=== PATIENT | female | born 1960 | race Caucasian/White ===

== ENCOUNTER → 2019-02-09 | Outpatient (CLI) | payer OTHER ==
--- NOTE | 2019-02-09 16:14 | PFTRPT ---
Height: 66.00 Inches Weight: 230.00 Lbs BSA: 2.12 Diagnosis: R06.02 DATE OF PROCEDURE: 02/09/2019 ORDERED BY: Dr. Ramos Spirometry: Pre and post bronchodilator study of excellent technical quality. Forced vital capacity reduced. FEV1 generally in proportion. Obstructive index is, therefore, normal. Flow Volume Loop: Expiratory limb of the flow volume loop does suggest some degree of flow rate limitation. Borderline bronchodilator response is identified. Lung Volumes: Total lung capacity normal. Residual volume suggests air trapping. Diffusing Capacity: Diffusing capacity is severely reduced and does not correct for alveolar volume. Hemoglobin: Hemoglobin acceptable at 12.4. Airway Mechanics: Airway resistance markedly elevated with a concomitant decrease in airway conductance. IMPRESSION: Suspect underlying obstructive impairment with air trapping. Diffusing capacity impairment. Borderline bronchodilator response. Please correlate clinically. MTDD
== END ==
LOC: M CARPUL 08:13
PROVIDERS: ATTEND Internal Medicine Pulmonary Disease
DX: R06.02 Shortness of breath (principal)

== ENCOUNTER → 2019-02-16 | Outpatient (CLI) | payer OTHER ==
[~2019-02-16] MED LIST: METHACHOLINE KIT (J7674) INH ONE
--- NOTE | 2019-02-16 15:47 | PFTRPT ---
Site: [facility], [address] [place], [address] ID: [id number] Name: ANSLEY BLUE Visit Date: 02/16/2019 Second ID: [id number] Referring Doctor: Aram Ramos MD Reviewing Doctor: Aram Ramos MD Private Duty Rn: Quinn SALGADO, NIECY Age: 58 : 1960 Sex: Female Race: Height: 66.00 Inches Weight: 230.00 Lbs BSA: 2.12 Order IDs: [id number] Requested Test(s): <RESP-PFT.METH CHAL> Diagnosis: R06.02 of albuterol for postbronchodilator. Review Status: Not Reviewed Pre-Bronch Post-Bronch Pred Actual %Pred Actual %Chng SPIROMETRY FVC (L) 3.56 1.97 55 2.01 1 FEV1 (L) 2.75 1.52 55 1.55 2 FEV1/FVC (%) 78 77 98 77 FEF 25% (L/sec) 5.19 4.28 82 3.80 -11 FEF 50% (L/sec) 3.63 1.73 47 2.01 15 FEF 75% (L/sec) 1.21 0.40 33 0.50 25 FEF 25-75% (L/sec) 2.47 1.21 48 1.37 13 FEF Max (L/sec) 6.61 4.83 73 3.97 -17 FIVC (L) 2.22 2.13 -4 FIF 50% (L/sec) 3.85 3.00 77 3.35 11 FIF Max (L/sec) 3.50 3.43 -1 Expiratory Time (sec) 7.05 6.18 -12 Back Extrap Vol (L) 0.10 0.07 -29 Time To FEFmax (sec) 0.083 0.091 10
== END ==
LOC: M CARPUL 08:13
PROVIDERS: ATTEND Internal Medicine Pulmonary Disease
DX: R06.02 Shortness of breath (principal)
CPT/HCPCS: 94070; J7674

== ENCOUNTER 2022-12-29 20:41 | Inpatient (IN) | payer OTHER ==
[~2022-12-29] VITALS: Ht 167.6 cm; Wt 90.1 kg
[2022-12-29] MEDS ORDERED: CHARCOAL ACTIVATED LIQUID 25GM/120ML BTL PO ONE (21:05)
[2022-12-29 21:15] LABS: BASO # 0.1 10^3/uL (0.0-0.2); BASO % 0.8 % (0.0-1.0); EOS # 0.2 10^3/uL (0.0-0.5); EOS % 2.3 % (0.0-3.0); HEMATOCRIT 43.6 % (36.0-47.0); HEMOGLOBIN 14.6 g/dl (12.0-15.5); LYMPH # 2.2 10^3/uL (1.5-5.0); LYMPH % 33.9 % (24.0-44.0); MEAN CORPUSCULAR HEMOGLOBIN 31.9 pg (27.0-33.0); MEAN CORPUSCULAR HGB CONC 33.5 g/dl (32.0-36.5); MEAN CORPUSCULAR VOLUME 95.2 fl (80.0-96.0); MONO # 0.4 10^3/uL (0.0-0.8); MONO % 6.9 % (2.0-8.0); NEUTROPHILS # 3.6 10^3/uL (1.5-8.5); NEUTROPHILS % 55.8 % (36.0-66.0); PLATELET COUNT, AUTOMATED 230 10^3/uL (150-450); RED BLOOD COUNT 4.58 10^6/uL (4.00-5.40); WHITE BLOOD COUNT 6.4 10^3/uL (4.0-10.0)
[2022-12-29] MEDS ORDERED: ATEN25TA PO (21:36)
[2022-12-29] MEDS ORDERED: LISI5TAB11 PO (21:36)
[2022-12-29 21:43] LABS: AMPHETAMINES LEVEL URINE NEGATIVE (NEGATIVE); BARBITURATES URINE NEGATIVE (NEGATIVE); BENZODIAZEPINES URINE NEGATIVE (NEGATIVE); CANNABINOIDS URINE NEGATIVE (NEGATIVE); METHADONE URINE NEGATIVE (NEGATIVE); OPIATES URINE NEGATIVE (NEGATIVE); PHENCYCLIDINE URINE NEGATIVE (NEGATIVE)
[2022-12-29 21:44] LABS: COCAINE METABOLITE URINE NEGATIVE (NEGATIVE)
[2022-12-29 21:46] LABS: ETHYL ALCOHOL (ETHANOL) 0.181 % (0.000-0.010)
[2022-12-29 21:47] LABS: CPK CREATINE PHOSPHOKINASE 148 U/L (34-145)
[2022-12-29 21:48] LABS: ACETAMINOPHEN LEVEL < 2.0 UG/ML (10.0-20.0); ALBUMIN 3.9 G/DL (3.2-5.2); ALKALINE PHOSPHATASE 69 U/L (46-116); ALT/SGPT 29 U/L (7.0-40); AST/SGOT 18 U/L (<34); BILIRUBIN,DIRECT 0.4 MG/DL (<0.4); BILIRUBIN,TOTAL 1.2 MG/DL (0.3-1.2); BLOOD UREA NITROGEN 13 MG/DL (9-23); CALCIUM LEVEL 9.3 MG/DL (8.3-10.6); CARBON DIOXIDE LEVEL 27 MMOL/L (20-31); CHLORIDE LEVEL 107 MMOL/L (98-107); CREATININE FOR GFR 0.73 MG/DL (0.55-1.30); GLOMERULAR FILTRATION RATE > 60.0 (>45); GLUCOSE, FASTING 91 MG/DL (74-106); POTASSIUM SERUM 3.7 MMOL/L (3.5-5.1); SALICYLATE LEVEL < 3.0 MG/DL (<30); SODIUM LEVEL 140 MMOL/L (136-145); TOTAL PROTEIN 7.1 G/DL (5.7-8.2)
[2022-12-29 21:49] LABS: THYROID STIMULATING HORMONE 1.718 uIU/ML (0.55-4.78)
[2022-12-29 22:00] LABS: RSV AMPLIFICATION NEGATIVE (NEGATIVE)
[2022-12-29] MEDS ORDERED: NS 1,000 ML IV ONE ×2 (23:10→23:50)
[2022-12-30] MEDS ORDERED: HOME MED LIST COMPLETE! XX SCH (02:15)
[2022-12-30] MEDS ORDERED: NS 1,000 ML IV ONE (02:55)
[2022-12-30] MEDS: NICOTINE 14 MG/24 HR TRANSDERMAL TD SCH (09:00)
[2022-12-30] MEDS: MULTIVITAMINS/MINERALS THERAP 1 TAB PO SCH (09:00)
[2022-12-30] MEDS: FOLIC ACID 1MG TAB PO SCH (09:00)
[2022-12-30] MEDS: THIAMINE 100 MG TAB PO SCH ×2 (09:00→21:11)
[2022-12-30] MEDS ORDERED: ACETAMINOPHEN TAB 650MG DOSE (2X325MG) PO ONE (10:15)
[2022-12-30] MEDS ORDERED: MAALOX 30 ML SUSP *UDC PO PRN (13:05)
[2022-12-30] MEDS ORDERED: LORazepam 2 MG TAB PO PRN (13:05)
[2022-12-30] MEDS ORDERED: IBUPROFEN 400MG TAB PO PRN (13:05)
[2022-12-30] MEDS ORDERED: traZODone 50 MG TAB PO PRN (13:05)
[2022-12-30] MEDS ORDERED: ACETAMINOPHEN TAB 650MG DOSE (2X325MG) PO PRN (13:05)
[2022-12-30] MEDS ORDERED: MOM 30ML SUSPENSION UDC PO PRN (13:05)
[2022-12-30 17:58] VITALS: BP 146/88
[2022-12-30 18:53] VITALS: BP 146/88
[2022-12-31 01:30] VITALS: BP 156/84
[2022-12-31 05:53] VITALS: BP 150/71
[2022-12-31] MEDS: NICOTINE 14 MG/24 HR TRANSDERMAL TD SCH ×2 (09:00→13:43)
[2022-12-31] MEDS: FOLIC ACID 1MG TAB PO SCH (09:17)
[2022-12-31] MEDS: MULTIVITAMINS/MINERALS THERAP 1 TAB PO SCH (09:17)
[2022-12-31] MEDS: THIAMINE 100 MG TAB PO SCH ×2 (09:17→22:45)
[2022-12-31] MEDS: atenoloL 25 MG TAB PO SCH (12:12)
[2022-12-31] MEDS: lisinopriL 5 MG TAB PO SCH (12:13)
[2022-12-31] MEDS: ASPIRIN 81MG ENTERIC TABLET PO SCH (12:13)
[2022-12-31] MEDS ORDERED: PILL CUTTER 1 EACH XX PRN (13:15)
[2022-12-31] MEDS: NALTREXONE 50 MG TAB PO SCH (13:43)
[2022-12-31 14:37] VITALS: BP 152/90
[2022-12-31 18:56] VITALS: BP 142/76
[2023-01-01 06:00] VITALS: BP 133/67
[2023-01-01 06:33] VITALS: BP 133/67
[2023-01-01] MEDS: ASPIRIN 81MG ENTERIC TABLET PO SCH (08:44)
[2023-01-01] MEDS: atenoloL 25 MG TAB PO SCH (08:44)
[2023-01-01] MEDS: MULTIVITAMINS/MINERALS THERAP 1 TAB PO SCH (08:45)
[2023-01-01] MEDS: THIAMINE 100 MG TAB PO SCH (08:46)
[2023-01-01] MEDS: NALTREXONE 50 MG TAB PO SCH (08:46)
[2023-01-01] MEDS: FOLIC ACID 1MG TAB PO SCH (08:46)
[2023-01-01 08:47] VITALS: BP 149/71
[2023-01-01] MEDS: lisinopriL 5 MG TAB PO SCH (08:47)
[2023-01-01] MEDS: NICOTINE 14 MG/24 HR TRANSDERMAL TD SCH (08:49)
[2023-01-01 10:03] VITALS: BP 138/76
[2023-01-01 10:08] VITALS: BP 138/76
[2023-01-01] MEDS ORDERED: NALT50TA4 PO (12:39)
[2023-01-01] MEDS ORDERED: NICO14PA TD (12:39)
[2023-01-01] MEDS ORDERED: ASPI81TAEC PO (12:39)
== END 2023-01-01 14:00 | disposition home or self-care (01) | DRG 775 ==
LOC: M ED 20:41 → EDBD 20:41 → M ED INP 12-30 13:04 → M PSY 12-30 17:59
PROVIDERS: ADMIT Student in an Organized Health Care Education/Training Program; ATTEND Student in an Organized Health Care Education/Training Program
DX: F19.24 Other psychoactive substance dependence with psychoactive substance-induced mood disorder (principal); F10.10 Alcohol abuse, uncomplicated; I48.91 Unspecified atrial fibrillation; I10 Essential (primary) hypertension; F17.210 Nicotine dependence, cigarettes, uncomplicated; F43.10 Post-traumatic stress disorder, unspecified; Z88.2 Allergy status to sulfonamides; Z88.8 Allergy status to other drugs, medicaments and biological substances; Z79.899 Other long term (current) drug therapy

== ENCOUNTER → 2024-10-28 | Outpatient (CLI) | payer MEDICARE ==
[~2024-10-28] MED LIST changes: +ASPI81TAEC PO; +ATEN25TA PO; +LEXA1TAB2 PO; +LISI5TAB11 PO; -METHACHOLINE KIT (J7674) INH ONE; +NALT50TA4 PO; +NICO14PA TD; +ULTR5TAB PO
== END ==
LOC: M ONCR 14:17
PROVIDERS: ATTEND General Practice
DX: C50.411 Malignant neoplasm of upper-outer quadrant of right female breast (principal); Z17.411 Hormone receptor positive with human epidermal growth factor receptor 2 negative status; Z98.890 Other specified postprocedural states; Z80.1 Family history of malignant neoplasm of trachea, bronchus and lung; Z80.6 Family history of leukemia; Z88.1 Allergy status to other antibiotic agents; Z88.2 Allergy status to sulfonamides; Z88.5 Allergy status to narcotic agent; Z87.891 Personal history of nicotine dependence; Z79.899 Other long term (current) drug therapy

== ENCOUNTER 2024-11-09 10:58 | Outpatient (RCR) | payer MEDICARE | END 2024-11-12 | LOC: M ONCR 10:58 | PROVIDERS: ATTEND General Practice | DX: Z51.0 Encounter for antineoplastic radiation therapy (principal); C50.411 Malignant neoplasm of upper-outer quadrant of right female breast ==

== ENCOUNTER 2024-11-26 12:41 | Outpatient (RCR) | payer MEDICARE | END 2024-12-13 | LOC: M ONCR 12:41 | PROVIDERS: ATTEND General Practice | DX: Z51.0 Encounter for antineoplastic radiation therapy (principal); C50.411 Malignant neoplasm of upper-outer quadrant of right female breast ==

== ENCOUNTER → 2025-06-23 | Outpatient (CLI) | payer MEDICARE | LOC: M ONCR 12:59 | PROVIDERS: ATTEND General Practice | DX: Z08 Encounter for follow-up examination after completed treatment for malignant neoplasm (principal); Z85.3 Personal history of malignant neoplasm of breast; Z79.811 Long term (current) use of aromatase inhibitors; Z79.899 Other long term (current) drug therapy; Z92.3 Personal history of irradiation; Z87.891 Personal history of nicotine dependence; Z88.1 Allergy status to other antibiotic agents; Z88.2 Allergy status to sulfonamides; Z88.8 Allergy status to other drugs, medicaments and biological substances; Z98.890 Other specified postprocedural states ==